=== PATIENT | male | born 1995 | race Two or more races ===

== ENCOUNTER 2019-01-01 23:39 | Emergency (ER) | payer OTHER ==
[~2019-01-01] VITALS: Ht 167.6 cm; Wt 93.0 kg
[2019-01-01 23:54] VITALS: BP 151/83
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
[2019-01-02 00:26] VITALS: BP 151/83
--- NOTE | 2019-01-02 00:26 | NUR ---
ER DISCHARGE NOTE: Patient is cleared to be discharged per Dr. Renner. Medical report issued. Pt is aox4 on room air with stable vital signs. Pt was given dc and prescription instructions and was able to verbalize understanding. Pt's ID band removed . Pt is able to ambulate with steady gait and took all belongings.
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
== END 2019-01-02 00:26 | disposition home or self-care (01) ==
LOC: EMR 23:59
DX: S00.531A Contusion of lip, initial encounter (principal); S89.92XA Unspecified injury of left lower leg, initial encounter; S89.91XA Unspecified injury of right lower leg, initial encounter; W50.0XXA Accidental hit or strike by another person, initial encounter; Y92.9 Unspecified place or not applicable
CPT/HCPCS: 99281